=== PATIENT | female | born 1980 | race Caucasian/White ===

== ENCOUNTER → 2016-12-02 | Outpatient (CLI) | payer OTHER ==
[~2016-12-02] VITALS: Ht 166.4 cm; Wt 70.4 kg
[~2016-12-02] MED LIST: ADDERALL30 MG PO; RANITIDINE HCL150 MG PO; TRILEPTAL150 MG PO; ULTRAM50 MG PO; VENLAFAXINE HC150 M1 PO; WELLBUTRIN SR150 MG PO; ZOFRAN4 MG PO
== END | disposition home or self-care (01) ==
LOC: AMB 08:23
DX: K29.70 Gastritis, unspecified, without bleeding (principal); K22.10 Ulcer of esophagus without bleeding; Z12.11 Encounter for screening for malignant neoplasm of colon; Z09 Encounter for follow-up examination after completed treatment for conditions other than malignant neoplasm; Z86.010 Personal history of colon polyps; K64.8 Other hemorrhoids; K21.9 Gastro-esophageal reflux disease without esophagitis; F90.2 Attention-deficit hyperactivity disorder, combined type; H91.93 Unspecified hearing loss, bilateral; G89.29 Other chronic pain; M54.2 Cervicalgia; N11.9 Chronic tubulo-interstitial nephritis, unspecified; K58.1 Irritable bowel syndrome with constipation; F17.200 Nicotine dependence, unspecified, uncomplicated; Z88.5 Allergy status to narcotic agent; Z82.5 Family history of asthma and other chronic lower respiratory diseases; Z81.8 Family history of other mental and behavioral disorders; Z83.49 Family history of other endocrine, nutritional and metabolic diseases; Z82.49 Family history of ischemic heart disease and other diseases of the circulatory system; Z80.1 Family history of malignant neoplasm of trachea, bronchus and lung
CPT/HCPCS: 88305; 88342 TC

== ENCOUNTER 2017-04-13 21:50 | Emergency (ER) | payer OTHER ==
[~2017-04-13] VITALS: Ht 165.1 cm; Wt 70.9 kg
[2017-04-13 22:21] LABS: INTERNAL CONTROL VALID? YES
[2017-04-13 22:23] LABS: ADD MIUA? YES; BILIRUBIN NEGATIVE; BLOOD NEGATIVE; GLUCOSE (STRIP) NEGATIVE; KETONES NEGATIVE; LEUKOCYTES NEGATIVE; PROTEIN (STRIP) 100
[2017-04-13 22:55] LABS: HEMATOCRIT 42.4 % (36.0-46.0); MCH 33.1 PG (29.0-34.0); MCV 97.5 FL (83-99); MEAN PLAT.VOLUME 9.1 uM^3 (9.5-12.4); PLATELET COUNT 300 K/uL (156-360); RBC DIS.WIDTH-CV 12.6 % (11.8-14.6); RBC DIS.WIDTH-SD 45.4 % (39-53); RED BLOOD COUNT 4.35 M/uL (3.80-5.20); WHITE BLOOD COUNT 10.8 K/uL (4.1-10.2)
[2017-04-13 23:01] LABS: BACTERIA RARE /HPF; EPITHELIAL CELLS 1+ /HPF; MUCUS TRACE /LPF; RED BLOOD CELLS 0-5 /HPF (0-5); RENAL EPITHELIAL CELLS 1+ /HPF; UCUL ADDED? YES
[2017-04-13 23:03] LABS: COLOR RED ((YELLOW))
[2017-04-13 23:05] LABS: NITRITE POSITIVE
[2017-04-13 23:07] LABS: CHLORIDE 107 mEq/L (99-109); SODIUM 139 mEq/L (136-147)
[2017-04-13 23:09] LABS: GLUCOSE 92 mg/dL (70-99)
[2017-04-13 23:10] LABS: ANION GAP 8 MEQ/L (2-14)
[2017-04-13 23:12] LABS: GFR ESTIMATE (CALCULATED) > 59 mL/min/
[2017-04-13 23:13] LABS: UREA NITROGEN (BUN) 10 mg/dL (9-23)
[2017-04-13 23:21] LABS: QUANTITATIVE HCG < 4.0 MIU/ML
[2017-04-13] MEDS ORDERED: MACROBID100 MG PO (23:25)
[2017-04-13 23:57] VITALS: BP 118/75
== END 2017-04-13 23:58 | disposition home or self-care (01) ==
LOC: EME 21:50
PROVIDERS: Emergency Medicine
DX: N39.0 Urinary tract infection, site not specified (principal); Z87.440 Personal history of urinary (tract) infections; K21.9 Gastro-esophageal reflux disease without esophagitis; F17.200 Nicotine dependence, unspecified, uncomplicated
CPT/HCPCS: 80048; 81003; 84702; 84703; 85027; 87086; 99281; 99284

== ENCOUNTER 2018-03-12 00:13 | Emergency (ER) | payer OTHER ==
[~2018-03-12] VITALS: Ht 165.1 cm; Wt 69.5 kg
[~2018-03-12 00:13] MED LIST changes: +MACROBID100 MG PO
[2018-03-12 01:02] LABS: HEMATOCRIT 37.2 % (36.0-46.0); HEMOGLOBIN 13.1 G/DL (11.9-15.5); MCH 33.8 PG (29.0-34.0); MCHC 35.2 G/DL (30.0-36.0); MCV 95.9 FL (83-99); PLATELET COUNT 269 K/uL (156-360); RBC DIS.WIDTH-CV 12.7 % (11.8-14.6); RBC DIS.WIDTH-SD 44.7 % (39-53); RED BLOOD COUNT 3.88 M/uL (3.80-5.20); WHITE BLOOD COUNT 8.3 K/uL (4.1-10.2)
[2018-03-12 01:03] LABS: APPEARANCE CLEAR ((CLEAR)); BILIRUBIN NEGATIVE; BLOOD NEGATIVE; COLOR YELLOW ((YELLOW)); GLUCOSE (STRIP) NEGATIVE; KETONES 5; LEUKOCYTES TRACE; NITRITE NEGATIVE; PROTEIN (STRIP) NEGATIVE; SPECIFIC GRAVITY 1.025 (1.000-1.030)
[2018-03-12 01:10] LABS: ALBUMIN 4.3 g/dL (3.2-4.8); CHLORIDE 108 mEq/L (99-109); SODIUM 140 mEq/L (136-147)
[2018-03-12 01:12] LABS: GLUCOSE 94 mg/dL (70-99)
[2018-03-12 01:13] LABS: TOTAL PROTEIN 6.8 g/dL (6.4-8.3)
[2018-03-12 01:14] LABS: TOTAL BILIRUBIN 0.5 mg/dL (0.0-1.0)
[2018-03-12 01:16] LABS: ALKALINE PHOSPHATASE 52 IU/L (3-129); CREATININE 0.8 mg/dL (0.6-1.3); GFR ESTIMATE (CALCULATED) > 59 mL/min/
[2018-03-12 01:17] LABS: UREA NITROGEN (BUN) 8 mg/dL (9-23)
[2018-03-12 01:18] LABS: AST (GOT) 18 IU/L (2-34)
[2018-03-12 01:19] LABS: ALT (GPT) 12 IU/L (3-49); LIPASE 34 U/L (1.0-51.0)
[2018-03-12 01:22] LABS: BACTERIA RARE /HPF; EPITHELIAL CELLS 1+ /HPF; MUCUS 2+ /LPF; RED BLOOD CELLS 0-5 /HPF (0-5); UCUL ADDED? YES
[2018-03-12 01:27] LABS: QUANTITATIVE HCG < 4.0 MIU/ML
[2018-03-12] MEDS ORDERED: DELSYM30 MG/5 M1 PO (03:11)
[2018-03-12] MEDS ORDERED: CIPRO250 MG PO (03:38)
[2018-03-12 04:04] VITALS: BP 108/74
== END 2018-03-12 04:05 | disposition home or self-care (01) ==
LOC: EME 00:13
DX: N39.0 Urinary tract infection, site not specified (principal); J06.9 Acute upper respiratory infection, unspecified; K21.9 Gastro-esophageal reflux disease without esophagitis; F41.9 Anxiety disorder, unspecified; F32.9 Major depressive disorder, single episode, unspecified; F17.200 Nicotine dependence, unspecified, uncomplicated; Z90.49 Acquired absence of other specified parts of digestive tract; Z88.5 Allergy status to narcotic agent
CPT/HCPCS: 80053; 81003; 83690; 84702; 85027; 87086; 99281; 99284